=== PATIENT | female | born 1940 | race Caucasian/White ===

== ENCOUNTER → 2017-05-12 | Outpatient (CLI) | payer MEDICARE ==
--- NOTE | 2017-05-12 17:51 | 2DMMODE ---
[place] [address] 2 D/M-MODE ECHOCARDIOGRAM Name: ALEXIS MARQUEZ Room: [facility]#: [id number] Admission: 05/12/17 Attend Phys: Johnny Elizabeth MD Discharge: Date of : 44 Date of Service: 05/12/17 1750 Report #: [id number] THIS REPORT FOR: //name// APPROVED REPORT Study performed: 05/12/2017 12:58:48 EXAM: Comprehensive 2D, Doppler, and color-flow Echocardiogram Patient Location: Out-Patient Status: routine BSA: 2.22 HR: 56 bpm BP: 130/68 mmHg Other Information Study Quality: Adequate Indications Congestive Heart Failure 2D Dimensions LVEF(%): 62.97 (>50%) IVSd: 12.14 (7-11mm) LVOT Diam: 20.12 (18-24mm) LVDd: 46.93 mm PWd: 10.37 (7-11mm) Ascending Ao: 28.44 (22-36mm) LVDs: 30.95 (25-40mm) Aortic Root: 27.33 mm Alexandra's LVEF: 62.97 % Volumes Left Atrial Volume (Systole) LA ESV Index: 17.20 mL/m2 Aortic Valve AoV Peak Gamaliel.: 1.42 m/s AO Peak Gr.: 8.04 mmHg LVOT Max P.81 mmHg AO Mean Gr.: 4.71 mmHg LVOT Mean P.28 mmHg LVOT Max V: 1.10 m/s AO V2 VTI: 32.75 cm LVOT Mean V: 0.69 m/s DANNY (VTI): 2.26 cm2 LVOT V1 VTI: 23.32 cm Mitral Valve E/A Ratio: 1.02 MV Decel. Time: 232.06 [place] [address] 2 D/M-MODE ECHOCARDIOGRAM Name: ALEXIS MARQUEZ Room: [facility]#: [id number] Admission: 05/12/17 Attend Phys: Johnny Elizabeth MD Discharge: Date of : 44 Date of Service: 05/12/17 1750 Report #: [id number] MV E Max Gamaliel.: 0.89 m/s MV PHT: 67.30 ms MVA (PHT): 3.27 cm2 TDI E/Lateral E': 9.89 E/Medial E': 8.09 Medial E' Gaamliel.: 0.11 m/s Lateral E' Gamaliel.: 0.09 m/s Pulmonary Valve PV Peak Gamaliel.: 0.83 m/s PV Peak Gr.: 2.74 mmHg Left Ventricle The left ventricle is normal size. There is normal LV segmental wall motion. There is normal left ventricular wall thickness. Left ventricular systolic function is normal. The left ventricular ejection fraction is within the normal range. LVEF is 60%. The left ventricular diastolic function is normal. Right Ventricle The right ventricle is normal size. The right ventricular systolic function is normal. Atria The left atrium size is normal. The right atrium size is normal. Aortic Valve Mild aortic valve sclerosis. No aortic regurgitation is present. There is no aortic valvular stenosis. Mitral Valve There is mild mitral annular calcification. Mild mitral regurgitation. No evidence of mitral valve stenosis. Tricuspid Valve The tricuspid valve is normal in structure. There is no tricuspid valve regurgitation noted. Pulmonic Valve The pulmonary valve is normal in structure. Trace pulmonic regurgitation. Great Vessels The aortic root is normal in size. IVC is normal in size and collapses with >50% [place] [address] 2 D/M-MODE ECHOCARDIOGRAM Name: ALEXIS MARQUEZ Room: [facility]#: [id number] Admission: 05/12/17 Attend Phys: Johnny Elizabeth MD Discharge: Date of : 44 Date of Service: 05/12/17 1750 Report #: [id number] Pericardium There is no pericardial effusion. <Conclusion> The left ventricle is normal size. There is normal left ventricular wall thickness. Left ventricular systolic function is normal. The left ventricular ejection fraction is within the normal range. LVEF is 60%. The left ventricular diastolic function is normal. The right ventricle is normal size. The left atrium size is normal. Mild aortic valve sclerosis. No aortic regurgitation is present. There is no aortic valvular stenosis. There is mild mitral annular calcification. Mild mitral regurgitation. No evidence of mitral valve stenosis. The tricuspid valve is normal in structure. IVC is normal in size and collapses with >50% inspiration There is no pericardial effusion. There is normal LV segmental wall motion. <ELECTRONICALLY SIGNED> By: Diomedes Kent MD, FACC 05/12/171749 [id number] Diomedes Kent MD, FACC /INF
== END ==
LOC: M.CRD 12:38
DX: I50.9 Heart failure, unspecified (principal); I34.0 Nonrheumatic mitral (valve) insufficiency; I34.8 Other nonrheumatic mitral valve disorders; I35.8 Other nonrheumatic aortic valve disorders

== ENCOUNTER → 2017-05-19 | Outpatient (CLI) | payer MEDICARE ==
[2017-05-19 16:14] LABS: CALCIUM 8.7 mg/dL (8.5-10.1); CREATININE 1.1 mg/dL (0.6-1.3); POTASSIUM 4.5 mmol/L (3.5-5.1)
== END ==
LOC: M.LAB 15:31
PROVIDERS: Nurse Practitioner
DX: R06.02 Shortness of breath (principal); R60.1 Generalized edema